=== PATIENT | female | born 1990 | race Caucasian/White ===

== ENCOUNTER 2021-01-22 23:21 | Emergency (ER) | payer MEDICAID, OTHER ==
[~2021-01-22] VITALS: Ht 162.5 cm; Wt 86.3 kg
[2021-01-22] MEDS ORDERED: METR-145 PO (23:37)
[2021-01-22] MEDS ORDERED: PNV1TABL81 PO (23:38)
[2021-01-22] MEDS ORDERED: D5 NS 1000 ML IV SOLUTION 1,000 ML IV SCH (23:45)
[2021-01-22] MEDS ORDERED: ACETAMINOPHEN 500 MG TAB (TYLENOL) PO ONE (23:45)
[2021-01-22] MEDS ORDERED: FAMOTIDINE 20 MG (PEPCID) TABLET PO ONE (23:45)
[2021-01-22] MEDS ORDERED: METOCLOPRAMIDE INJ 10 MG/2 ML (REGLAN) IVP ONE (23:45)
[2021-01-22] MEDS ORDERED: diphenhydrAMINE 50 MG/ML INJ (BENADRYL) IVP ONE (23:45)
[2021-01-22] MEDS ORDERED: LACTATED RINGERS 1,000 ML IV ONE (23:57)
[2021-01-23] MEDS ORDERED: LACTATED RINGERS 1,000 ML IV ONE
[2021-01-23 00:16] LABS: HEMATOCRIT 38 % (35-52); HEMOGLOBIN 12.9 G/DL (11.5-16.0); MEAN CORPUSCULAR HEMOGLOBIN 31 PG (25-34); MEAN CORPUSCULAR VOLUME 92 FL (80-99); PLATELET COUNT 257 10^3/uL (130-400); WHITE BLOOD COUNT 14.6 10^3/uL (4.3-11.0)
[2021-01-23 00:17] LABS: BASOPHILS # (AUTO) 0.1 10^3/uL (0.0-0.1); BASOPHILS % (AUTO) 0 % (0-10); EOSINOPHILS # (AUTO) 0.2 10^3/uL (0.0-0.3); EOSINOPHILS % (AUTO) 2 % (0-10); LYMPHOCYTES # (AUTO) 2.9 X 10^3 (1.0-4.0); LYMPHOCYTES % (AUTO) 20 % (12-44); MEAN PLATELET VOLUME 11.9 FL (7.4-10.4); MONOCYTES # (AUTO) 1.1 X 10^3 (0.0-1.0); MONOCYTES % (AUTO) 8 % (0-12); NEUTROPHILS # (AUTO) 10.2 X 10^3 (1.8-7.8); NEUTROPHILS % (AUTO) 70 % (42-75)
[2021-01-23 00:18] LABS: MEAN CORPUSCULAR HGB CONC 34 G/DL (32-36)
[2021-01-23 00:24] LABS: LYMPHOCYTES % (MANUAL) 19 %; NEUTROPHILS % (MANUAL) 71 %; RBC MORPH NORMAL; TOXIC GRANULATION/VACUOLAZATIO 2+
[2021-01-23 00:25] LABS: BASOPHILS % (MANUAL) 1 %; MONOCYTES % (MANUAL) 9 %; PLATELET ESTIMATE ADEQUATE
[2021-01-23 00:36] LABS: CHLORIDE 104 MMOL/L (98-107); POTASSIUM 3.8 MMOL/L (3.6-5.0); SODIUM 134 MMOL/L (135-145)
[2021-01-23 00:37] LABS: ALANINE AMINOTRANSFERASE 12 U/L (0-55); ALBUMIN 3.7 GM/DL (3.2-4.5); ALKALINE PHOSPHATASE 54 U/L (40-136); BILIRUBIN,TOTAL 0.2 MG/DL (0.1-1.0); BUN/CREATININE RATIO 17; CALCIUM 8.8 MG/DL (8.5-10.1); CARBON DIOXIDE 20 MMOL/L (21-32); CREATININE SERUM 0.47 MG/DL (0.60-1.30); GFR ESTIMATED > 60; GLUCOSE 115 MG/DL (70-105); TOTAL PROTEIN 6.5 GM/DL (6.4-8.2)
--- NOTE | 2021-01-23 00:40 | ED General ---
General Chief Complaint: Abdominal/GI Problems Stated Complaint: DIZZINESS/NAUSEA Nursing Triage Note: Pt presents to ED reporting feeling nauseated and dizzy. Pt is [address] Gonsalves's care at [facility]. Mild headache with some neck tension/pain. Pt was just prescribed Metronidazole for BV. History of Present Illness Date Seen by Provider: Jan 22, 2021 Time Seen by Provider: 23:33 Initial Comments Patient presenting to the emergency department for evaluation of multiple compl aints including dizziness nausea poor p.o. intake headache. She says that she has been nauseated and not been taking in much fluids for the past 4 days and she did see her relief captain recently and they did not prescribe her anything for nausea but did prescribe her Flagyl for bacterial vaginosis. She says that the dizziness is a lightheaded sensation that is most prominent whenever she is trying to sit up or stand up and walk she feels very lightheaded. She says that the headache is diffuse and pounding and radiates into her occipital neck region but denies any neck stiffness photophobia fevers chills vomiting. She is G3, P2 approximately 9 weeks and denies any abdominal pain vaginal bleeding or dysuria. She is in no acute distress with normal vital signs. Allergies and Home Medications Allergies Coded Allergies: tramadol (Unverified Adverse Reaction, Mild, Heart racing, nausea, 01/22/21) Home Medications Famotidine 20 Mg Tablet, 20 MG PO DAILY Prescribed by: ERMA HUA on 01/23/2143 Metronidazole 500 Mg Tablet, 500 MG PO BID, (Reported) Last Action: New Order Ondansetron 4 Mg Tab.rapdis, 4 MG PO Q6H PRN for NAUSEA/VOMITING-1ST LINE Prescribed by: ERMA HUA on 01/23/2143 Pnv No.122/Iron/Folic Acid 1 Each Tablet, 1 EACH PO DAILY, (Reported) Last Action: New Order Patient Home Medication List Home Medication List Reviewed: Yes Review of Systems Review of Systems Constitutional: dizziness EENTM: no symptoms reported Respiratory: no symptoms reported Cardiovascular: no symptoms reported Gastrointestinal: nausea Genitourinary: no symptoms reported Expected Date of Delivery: Aug 26, 2021 Musculoskeletal: no symptoms reported Skin: no symptoms reported Psychiatric/Neurological: Headache All Other Systems Reviewed Negative Unless Noted: Yes Past Cbgepau-Jcwuck-Ostcxo Hx Patient Social History Tobacco Use?: No Use of E-Cig and/or Vaping dev: No Substance use?: No Alcohol Use?: No Pt feels they are or have been: No Past Medical History Surgery/Hospitalization HX: Denies PMH, G-3, P-2 Expected Date of Delivery: Aug 26, 2021 Last Menstrual Period: November 22, 2020 Physical Exam Vital Signs Vital Signs - First Documented 01/22/21 23:27 Temp 36.6 Pulse 97 Resp 18 B/P (MAP) 144/73 (96) Pulse Ox 97 O2 Delivery Room Air Capillary Refill : Less Than 3 Seconds Height, Weight, BMI Height: '" Weight: lbs. oz. kg; 32.00 BMI Method: General Appearance: No Apparent Distress, WD/WN HEENT: PERRL/EOMI Neck: Supple Respiratory: Lungs Clear, No Respiratory Distress Cardiovascular: Regular Rate, Rhythm Gastrointestinal: Non Tender, Soft Back: Normal Inspection Extremity: Normal Capillary Refill Neurologic/Psychiatric: Alert, Oriented x3 Skin: Warm/Dry Progress/Results/Core Measures Suspected Sepsis SIRS Temperature: Pulse: 97 Respiratory Rate: 18 Laboratory Tests 01/22/21 23:57: White Blood Count 14.6H Blood Pressure 144 /73 Mean: 96 Laboratory Tests 01/22/21 23:57: Creatinine 0.47L, Platelet Count 257, Total Bilirubin 0.2 Results/Orders Lab Results Laboratory Tests Test 01/22/21 23:57 01/23/21 00:30 Range/Units White Blood Count 14.6 H 4.3-11.0 10^3/uL Red Blood Count 4.12 L 4.35-5.85 10^6/uL Hemoglobin 12.9 11.5-16.0 G/DL Hematocrit 38 35-52 % Mean Corpuscular Volume 92 80-99 FL Mean Corpuscular Hemoglobin 31 25-34 PG Mean Corpuscular Hemoglobin Concent 34 32-36 G/DL Red Cell Distribution Width 12.1 10.0-14.5 % Platelet Count 257 130-400 10^3/uL Mean Platelet Volume 11.9 H 7.4-10.4 FL Immature Granulocyte % (Auto) 0 % Neutrophils (%) (Auto) 70 42-75 % Lymphocytes (%) (Auto) 20 12-44 % Monocytes (%) (Auto) 8 0-12 % Eosinophils (%) (Auto) 2 0-10 % Basophils (%) (Auto) 0 0-10 % Neutrophils # (Auto) 10.2 H 1.8-7.8 X 10^3 Lymphocytes # (Auto) 2.9 1.0-4.0 X 10^3 Monocytes # (Auto) 1.1 H 0.0-1.0 X 10^3 Eosinophils # (Auto) 0.2 0.0-0.3 10^3/uL Basophils # (Auto) 0.1 0.0-0.1 10^3/uL Immature Granulocyte # (Auto) 0.1 0.0-0.1 10^3/uL Neutrophils % (Manual) 71 % Lymphocytes % (Manual) 19 % Monocytes % (Manual) 9 % Basophils % (Manual) 1 % Toxic Granulation 2+ Platelet Estimate ADEQUATE Blood Morphology Comment NORMAL Sodium Level 134 L 135-145 MMOL/L Potassium Level 3.8 3.6-5.0 MMOL/L Chloride Level 104 98-107 MMOL/L Carbon Dioxide Level 20 L 21-32 MMOL/L Anion Gap 10 5-14 MMOL/L Blood Urea Nitrogen 8 7-18 MG/DL Creatinine 0.47 L 0.60-1.30 MG/DL Estimat Glomerular Filtration Rate > 60 BUN/Creatinine Ratio 17 Glucose Level 115 H 70-105 MG/DL Calcium Level 8.8 8.5-10.1 MG/DL Corrected Calcium 9.0 8.5-10.1 MG/DL Total Bilirubin 0.2 0.1-1.0 MG/DL Aspartate Amino Transf (AST/SGOT) 12 5-34 U/L Alanine Aminotransferase (ALT/SGPT) 12 0-55 U/L Alkaline Phosphatase 54 40-136 U/L Total Protein 6.5 6.4-8.2 GM/DL Albumin 3.7 3.2-4.5 GM/DL Urine Color YELLOW Urine Clarity CLEAR Urine pH 7.0 5-9 Urine Specific [place] 1.010 L 1.016-1.022 Urine Protein NEGATIVE NEGATIVE Urine Glucose (UA) NEGATIVE NEGATIVE Urine Ketones NEGATIVE NEGATIVE Urine Nitrite NEGATIVE NEGATIVE Urine Bilirubin NEGATIVE NEGATIVE Urine Urobilinogen 0.2 < = 1.0 MG/DL Urine Leukocyte Esterase 1+ H NEGATIVE Urine RBC (Auto) NEGATIVE NEGATIVE Urine RBC NONE /HPF Urine WBC 2-5 /HPF Urine Squamous Epithelial Cells RARE /HPF Urine Crystals NONE /LPF Urine Bacteria FEW H /HPF Urine Casts NONE /LPF Urine Mucus NEGATIVE /LPF Urine Culture Indicated NO My Orders Orders - ERMA HUA DO Cbc With Automated Diff (01/22/21 23:40) Comprehensive Metabolic Panel (01/22/21 23:40) Iv/Invasive Line Insertion .IV start (01/22/21 23:40) Ua Culture If Indicated (01/22/21 23:40) Metoclopramide Injection (Reglan Injecti (01/22/21 23:45) Diphenhydramine Injection (Benadryl Inje (01/22/21 23:45) Acetaminophen Tablet (Tylenol Tablet) (01/22/21 23:45) Famotidine Tablet (Pepcid Tablet) (01/22/21 23:45) Ed Iv/Invasive Line Start (01/22/21 23:58) Lactated Ringers (Lr 1000 Ml Iv Solution (01/23/21 00:00) Lactated Ringers (Lr 1000 Ml Iv Solution (01/22/21 23:57) Manual Differential (01/22/21 23:57) Medications Given in ED Current Medications Medications Dose Ordered Sig/Francois Route Start Time Stop Time Status Last Admin Dose Admin Acetaminophen 1,000 mg ONCE ONCE PO 01/22/21 23:45 01/22/21 23:46 DC 01/23/21 00:04 1,000 MG Diphenhydramine HCl 25 mg ONCE ONCE IVP 01/22/21 23:45 01/22/21 23:46 DC 01/23/21 00:08 25 MG Famotidine 20 mg ONCE ONCE PO 01/22/21 23:45 01/22/21 23:46 DC 01/23/21 00:04 20 MG Lactated Ringer's 1,000 ml @ 0 mls/hr Q0M ONCE IV 01/23/21 00:00 01/23/21 00:01 DC 01/23/21 00:04 999 MLS/HR Metoclopramide HCl 5 mg ONCE ONCE IVP 01/22/21 23:45 01/22/21 23:46 DC 01/23/21 00:04 5 MG Vital Signs/I&O 01/22/21 01/23/21 23:27 00:04 Temp 36.6 36.6 Pulse 97 Resp 18 B/P (MAP) 144/73 (96) Pulse Ox 97 O2 Delivery Room Air Capillary Refill : Less Than 3 Seconds Blood Pressure Mean: 96 Progress Note : Progress Note Patient is unlikely dehydrated causing her orthostasis and headache. She feels much better after getting IV fluids here and she can tolerate fluids by mouth with no difficulty. She feels well would like to go home. She says she is aware of the controversy with Zofran but has taken Zofran with both of her prior pregnancies and wants to take it again for this for her nausea. I told her to continue drinking plenty of fluids as this will help her headache and dizziness. She is asking for something for reflux as well so I will prescribe her Pepcid. I told her to follow with her relief captain within the next 3 to 4 days for recheck and come back to the ED sooner with worsening pain fevers vomiting or other general concerns. Patient aware and agreeable with plan and verbalized understanding of the above instructions. Of note I did review the urine results with the patient and told her that she had few bacteria and 1+ leuk esterase and that she certainly could have a mild urinary tract infection. Based off her already being on Flagyl for bacterial vaginosis we made the decision not to start additional antibiotic and that she will follow with her OB within the next 4 to 5 days for repeat urinalysis to see if additional antibiotics are necessary but at this time will defer to culture and further testing. Departure Impression Primary Impression: Dehydration Additional Impressions: Nausea alone Orthostatic dizziness Headache Disposition: 01 HOME, SELF-CARE Condition: Stable Departure-Patient Inst. Referrals: WALLACE GONSALVES MD (PCP/Family) Primary Care Physician Patient Instructions: Dehydration, Adult (DC) Scripts Ondansetron (Ondansetron Odt) 4 Mg Tab.rapdis 4 MG PO Q6H PRN for NAUSEA/VOMITING-1ST LINE, #20 TAB Prov: ERMA HUA DO 01/23/21 Famotidine (Pepcid) 20 Mg Tablet 20 MG PO DAILY, #30 TAB Prov: ERMA HUA DO 01/23/21 ERMA HUA DO Jan 23, 2021 00:40
[2021-01-23] MEDS ORDERED: FAMO-119 PO (00:44)
[2021-01-23] MEDS ORDERED: ONDA4TAB11 PO (00:44)
[2021-01-23 00:53] LABS: BILIRUBIN,URINE NEGATIVE (NEGATIVE); CLARITY,URINE CLEAR; COLOR,URINE YELLOW; GLUCOSE, URINE (UA) NEGATIVE (NEGATIVE); KETONES,URINE NEGATIVE (NEGATIVE); LEUKOCYTE ESTERASE ,URINE 1+ (NEGATIVE); NITRITE,URINE NEGATIVE (NEGATIVE); PROTEIN,URINE NEGATIVE (NEGATIVE)
[2021-01-23 00:54] LABS: BACTERIA,URINE FEW /HPF; SQUAMOUS EPITHELIAL CELL,UR RARE /HPF
[2021-01-23 01:02] VITALS: BP 105/58
== END 2021-01-23 01:02 | disposition home or self-care (01) ==
LOC: ER FS 23:26
DX: O26.891 Other specified pregnancy related conditions, first trimester (principal); E86.0 Dehydration; R11.0 Nausea; R42 Dizziness and giddiness; R51.9 Headache, unspecified; Z3A.09 9 weeks gestation of pregnancy
CPT/HCPCS: 36415; 80053; 81000; 85007; 85027